=== PATIENT | female | born 1985 | race Caucasian/White ===

== ENCOUNTER 2024-09-04 17:13 | Emergency (ER) | payer OTHER ==
[~2024-09-04] VITALS: Ht 157.5 cm; Wt 79.4 kg
[2024-09-04] MEDS ORDERED: CYCL5TAB PO (19:02)
[2024-09-04] MEDS ORDERED: IBUP-1490 PO (19:02)
[2024-09-04] MEDS ORDERED: LIDO30AD10 TP (19:02)
[2024-09-04] MEDS: KETOROLAC TROMETHAMINE INJ 30 MG/ML VIAL IM ONE (19:12)
[2024-09-04] MEDS: LIDOCAINE 5% (PATCH) 1 EA PATCH TP ONE (19:12)
[2024-09-04 19:13] VITALS: BP 110/78; TEMP 98.8; O2SAT 98
== END 2024-09-04 19:13 | disposition home or self-care (01) ==
LOC: ER 17:17
DX: S16.1XXA Strain of muscle, fascia and tendon at neck level, initial encounter (principal); Z88.1 Allergy status to other antibiotic agents; Z88.2 Allergy status to sulfonamides; X58.XXXA Exposure to other specified factors, initial encounter; Y93.89 Activity, other specified; Y92.89 Other specified places as the place of occurrence of the external cause; Y99.8 Other external cause status
CPT/HCPCS: 81025; 84703; 96372; 99283; J1885